=== PATIENT | male | born 1955 | race Caucasian/White ===

== ENCOUNTER 2020-10-17 15:45 | Inpatient (IN) | payer MEDICARE ==
[~2020-10-17 15:45] MED LIST: Glycopyrrolate 0.2 MG/ML 5 ML SYRINGE ONE; Iopamidol-370 76% 500 ML 1 ML ONE; Lidocaine 1% PF 5 ML VIAL ONE; Ondansetron PF 4 MG/2 ML Vial ONE; PROPOFOL 200 MG/20 ML VIAL ONE; Rocuronium Bromide 10 MG/ML (10ML VIAL) ONE; Succinylcholine 200 MG/10 ml SYRINGE FS ONE; ePHEDrine 50 MG/ML VIAL ONE
[2020-10-17] MEDS ORDERED: Calcium Chloride 1 GM/10 ML Abboject SYRINGE ONE (15:52)
[2020-10-17] MEDS ORDERED: Ondansetron PF 4 MG/2 ML Vial ONE (15:52)
[2020-10-17] MEDS ORDERED: Tranexamic Acid 1,000 MG/10 ML VIAL ONE (15:53)
[2020-10-17] MEDS ORDERED: Ampicillin 2 GM VIAL ONE (16:01)
[2020-10-17] MEDS ORDERED: Fentanyl 100 MCG/2 ML VIAL ONE ×4 (16:04→18:54)
[2020-10-17] MEDS ORDERED: Boostrix 0.5 ML (Tdap) VIAL ONE (16:06)
[2020-10-17 16:11] LABS: PTT 26.4 sec (22.9-36.1); Prothrombin Time 13.2 sec (12.0-14.7)
[2020-10-17 16:20] LABS: ALT (SGPT) 18 U/L (8-55); AST (SGOT) 20 U/L (5-34); Albumin 3.7 g/dL (3.4-4.8); Alkaline Phosphatase 61 U/L (40-110); Anion Gap 18 mmol/L (10-20); BUN (Urea Nitrogen) 27 mg/dL (8.4-25.7); Bilirubin, Total 0.4 mg/dL (0.2-1.2); Calc. Creatinine Clearance 0 mL/min (70-130); Calcium 8.7 mg/dL (7.8-10.44); Carbon Dioxide 18 mmol/L (23-31); Chloride 111 mmol/L (98-107); Estimated GFR-MDRD 31; Globulin 3.2 g/dL (2.4-3.5); Glucose 121 mg/dL (80-115); Protein, Total 6.9 g/dL (5.8-8.1); Sodium 142 mmol/L (136-145)
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
[2020-10-17 16:29] LABS: #Basophils 0.2 thou/uL (0.0-0.2); #Eosinphils 0.2 thou/uL (0.0-0.7); #Lymphocytes 1.5 thou/uL (1.20-3.40); #Monocytes 0.9 thou/uL (0.11-0.59); #Neutrophils 14.9 thou/uL (1.40-6.50); %Eosinophils 1.3 % (0.0-10.0); %Lymphocytes 8.7 % (21.0-51.0); %Monocytes 4.8 % (0.0-10.0); %Neutrophils 84.3 % (42.0-75.0); Hemoglobin 14.5 g/dL (14.0-18.0); Mean Corpuscular HGB CONC 33.4 g/dL (32.0-36.0); Mean Corpuscular Hemoglobin 33.5 pg (27.0-31.0); Mean Platelet Volume 8.2 fL (7.4-10.4); Platelet Count 188 thou/uL (130-400); RBC Distribution Width 16.4 % (11.5-14.5); Red Blood Cell (RBC) Count 4.32 mill/uL (4.70-6.10); White Blood Cell (WBC) Count 17.7 thou/uL (4.8-10.8)
[2020-10-17] MEDS ORDERED: Protamine Sulfate 50 MG/5 ML VIAL ONE (17:01)
[2020-10-17] MEDS ORDERED: Heparin 5,000 UNITS/ML VIAL ONE (17:01)
[2020-10-17] MEDS ORDERED: Bupivacaine 0.25% HCL 30 ML VIAL ONE (17:06)
[2020-10-17] MEDS ORDERED: Midazolam HCl 2 mg/2 ml Vial ONE (17:12)
[2020-10-17] MEDS ORDERED: HYDROmorphone 10 mg/100 ml CADD IVPB PRN (17:28)
[2020-10-17] MEDS ORDERED: diphenhydrAMINE 50 MG/ML VIAL IM PRN (17:28)
[2020-10-17] MEDS ORDERED: Promethazine HCl 25 MG/ML VIAL IM PRN (17:28)
[2020-10-17] MEDS ORDERED: Naloxone HCl 0.4 mg/ml Vial IV PRN (17:28)
[2020-10-17] MEDS ORDERED: Ondansetron PF 4 MG/2 ML Vial IVP PRN ×2 (17:28→17:29)
[2020-10-17] MEDS ORDERED: diphenhydrAMINE 25 MG CAP PO PRN (17:28)
[2020-10-17] MEDS ORDERED: diphenhydrAMINE 50 MG/ML VIAL IVP PRN (17:28)
[2020-10-17] MEDS ORDERED: Dextrose 5% in Water 1,000 ML IV PRN (17:29)
[2020-10-17] MEDS ORDERED: Dextrose 50% Abboject 50 ML SYRINGE SLOW IVP PRN (17:29)
[2020-10-17] MEDS ORDERED: HumaLOG 300 UNITS/3 ML VIAL SC PRN (17:29)
[2020-10-17] MEDS ORDERED: Communication Order-Pharmacy FS SCH (17:30)
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
--- NOTE | 2020-10-17 18:49 | RAD ---
RIGHT FEMUR: 10/17/20 A single portable image obtained. INDICATIONS: Assess for foreign body. FINDINGS/IMPRESSION: There is overlying artifact. Overlying foreign bodies seen proximally which may reside within the reilly ts pocket and may be external. There is a faint soft tissue density distally which cannot be further assessed but could represent so ft tissue foreign body. Clinical correlation as necessary. POS: AGW
[2020-10-17] MEDS: Sodium Chloride 0.9% 1,000 ML IV SCH ×2 (18:51→22:45)
[2020-10-17 19:26] LABS: Lactic Acid 1.8 mmol/L (0.5-2.2)
[2020-10-17] MEDS ORDERED: Gabapentin 300 MG CAP ONE (22:01)
[2020-10-17] MEDS: Gabapentin 300 MG CAP PO SCH (22:44)
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
[2020-10-18] MEDS: Mometasone 200 MCG/Formoterol 5 MCG 120 PUFF INHALER INH SCH ×4 (00:01→18:54)
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
[2020-10-18 01:04] LABS: SARS-CoV-2 NAA Rapid Test Not Detected (NotDetected)
[2020-10-18 01:25] VITALS: BMI 25.3
[2020-10-18 03:55] LABS: #Basophils 0.1 thou/uL (0.0-0.2); #Eosinphils 0.2 thou/uL (0.0-0.7); #Lymphocytes 1.4 thou/uL (1.20-3.40); #Monocytes 0.7 thou/uL (0.11-0.59); #Neutrophils 12.9 thou/uL (1.40-6.50); %Basophils 0.8 % (0.0-1.0); %Monocytes 4.8 % (0.0-10.0); %Neutrophils 84.5 % (42.0-75.0); Hemoglobin 13.3 g/dL (14.0-18.0); Mean Corpuscular HGB CONC 32.3 g/dL (32.0-36.0); Mean Corpuscular Hemoglobin 32.4 pg (27.0-31.0); Mean Platelet Volume 8.3 fL (7.4-10.4); Platelet Count 184 thou/uL (130-400); RBC Distribution Width 16.4 % (11.5-14.5); White Blood Cell (WBC) Count 15.3 thou/uL (4.8-10.8)
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
[2020-10-18 04:26] LABS: Anion Gap 13 mmol/L (10-20); BUN (Urea Nitrogen) 23 mg/dL (8.4-25.7); Calc. Creatinine Clearance 66 mL/min (70-130); Calcium 8.2 mg/dL (7.8-10.44); Carbon Dioxide 21 mmol/L (23-31); Chloride 112 mmol/L (98-107); Estimated GFR-MDRD 54; Glucose 99 mg/dL (80-115); Magnesium 2.1 mg/dL (1.6-2.6); Potassium 4.8 mmol/L (3.5-5.1); Sodium 141 mmol/L (136-145)
[2020-10-18 05:13] LABS: CK (CPK) 130 U/L (30-200); Phosphorus 4.8 mg/dL (2.3-4.7)
[2020-10-18] MEDS: Ipratropium Bromide 2.5 ml Neb NEB SCH ×3 (06:32→18:49)
[2020-10-18] MEDS ORDERED: Bupropion 150 MG XL TAB PO SCH (09:00)
[2020-10-18] MEDS ORDERED: Nebivolol HCl 5 MG TAB PO SCH ×2 (09:00→21:00)
[2020-10-18] MEDS ORDERED: Famotidine 20 MG TAB PO SCH (09:00)
[2020-10-18] MEDS ORDERED: oxyCODONE 5 MG TAB PO PRN (09:29)
[2020-10-18] MEDS: Gabapentin 300 MG CAP PO SCH ×3 (09:40→12:05)
[2020-10-18] MEDS: Aspirin 81 mg Enteric Coated Tablet PO SCH (09:40)
[2020-10-18] MEDS: Nebivolol HCl 5 MG TAB PO SCH (09:40)
[2020-10-18] MEDS: Bupropion 150 MG XL TAB PO SCH (09:41)
[2020-10-18] MEDS: Loratadine 10 MG TAB PO SCH (12:05)
[2020-10-18 13:41] LABS: Amphetamine Not Detected (NotDetected); Barbiturates Screen Not Detected (NotDetected); Benzodiazepine Screen Not Detected (NotDetected); Cocaine Metabolite Screen Not Detected (NotDetected); Medtox Control Line Valid? VALID (VALID); Medtox Reader # READER 1; Methadone Not Detected (NotDetected); Methamphetamine Not Detected (NotDetected); Opiate Screen Detected (NotDetected); Oxycodone Screen Detected (NotDetected); Phencyclidine (PCP) Not Detected (NotDetected); THC/Cannabinoid Screen Not Detected (NotDetected); Tricyclic Screen Not Detected (NotDetected)
[2020-10-18] MEDS ORDERED: Tamsulosin HCl 0.4 MG CAP PO SCH (14:01)
[2020-10-18] MEDS: oxyCODONE ER 10 MG TAB PO SCH (14:22)
[2020-10-18] MEDS: Sodium Chloride 0.9% 1,000 ML IV SCH (14:23)
[2020-10-18] MEDS: Lisinopril 20 MG TAB PO SCH (20:32)
[2020-10-18] MEDS ORDERED: BOSUTINIB 100 MG PO SCH (21:00)
[2020-10-18] MEDS ORDERED: Gabapentin 300 MG CAP PO SCH (21:00)
[2020-10-19] MEDS: Ipratropium Bromide 2.5 ml Neb NEB SCH ×2 (00:15→07:48)
[2020-10-19] MEDS: Sodium Chloride 0.9% 1,000 ML IV SCH (02:19)
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
[2020-10-19] MEDS ORDERED: oxyCODONE ER 10 MG TAB PO SCH (05:00)
[2020-10-19 05:17] LABS: #Basophils 0.1 thou/uL (0.0-0.2); #Eosinphils 0.1 thou/uL (0.0-0.7); #Lymphocytes 1.4 thou/uL (1.20-3.40); #Monocytes 0.7 thou/uL (0.11-0.59); #Neutrophils 8.2 thou/uL (1.40-6.50); %Basophils 1.3 % (0.0-1.0); %Eosinophils 1.3 % (0.0-10.0); %Monocytes 6.4 % (0.0-10.0); Hemoglobin 11.8 g/dL (14.0-18.0); Mean Corpuscular HGB CONC 30.8 g/dL (32.0-36.0); Mean Platelet Volume 8.6 fL (7.4-10.4); Platelet Count 163 thou/uL (130-400); RBC Distribution Width 16.2 % (11.5-14.5); Red Blood Cell (RBC) Count 3.82 mill/uL (4.70-6.10); White Blood Cell (WBC) Count 10.6 thou/uL (4.8-10.8)
[2020-10-19] MEDS: Gabapentin 300 MG CAP PO SCH ×2 (05:22→14:11)
[2020-10-19 05:55] LABS: Anion Gap 11 mmol/L (10-20); BUN (Urea Nitrogen) 16 mg/dL (8.4-25.7); Calc. Creatinine Clearance 94 mL/min (70-130); Calcium 8.4 mg/dL (7.8-10.44); Carbon Dioxide 26 mmol/L (23-31); Chloride 105 mmol/L (98-107); Estimated GFR-MDRD 80; Glucose 102 mg/dL (80-115); Magnesium 1.7 mg/dL (1.6-2.6); Phosphorus 2.7 mg/dL (2.3-4.7); Potassium 4.2 mmol/L (3.5-5.1); Sodium 138 mmol/L (136-145)
[2020-10-19] MEDS: Mometasone 200 MCG/Formoterol 5 MCG 120 PUFF INHALER INH SCH (07:47)
[2020-10-19] MEDS ORDERED: Polyethylene Glycol 3350 17 GM Packet PO SCH (09:00)
[2020-10-19] MEDS: Lisinopril 20 MG TAB PO SCH (09:00)
[2020-10-19] MEDS ORDERED: Tamsulosin HCl 0.4 MG CAP PO SCH (09:00)
[2020-10-19] MEDS: Aspirin 81 mg Enteric Coated Tablet PO SCH (09:00)
[2020-10-19] MEDS ORDERED: Senokot S 8.6-50 MG TAB PO SCH (09:00)
[2020-10-19] MEDS ORDERED: Dutasteride 0.5 MG CAP PO SCH (09:00)
[2020-10-19] MEDS: Loratadine 10 MG TAB PO SCH (09:00)
[2020-10-19] MEDS: Nebivolol HCl 5 MG TAB PO SCH (09:01)
[2020-10-19] MEDS: Bupropion 150 MG XL TAB PO SCH (09:01)
[2020-10-19 11:51] VITALS: BP 141/64; TEMP 98.6
[2020-10-19] MEDS: oxyCODONE ER 10 MG TAB PO SCH (14:11)
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
== END 2020-10-19 14:45 | disposition home or self-care (01) | DRG 907 ==
LOC: ERS 15:45 → SDC 17:31 → CCU 17:45 → SURG A 10-18 10:45
PROVIDERS: ADMIT Surgery; ATTEND Surgery
PROC: 04QK0ZZ Repair Right Femoral Artery, Open Approach (ICD-10-PCS; principal; 2020-10-17)
DX: S75.091A Other specified injury of femoral artery, right leg, initial encounter (principal); R57.8 Other shock; D62 Acute posthemorrhagic anemia; E87.2 Acidosis; W26.0XXA Contact with knife, initial encounter; J44.9 Chronic obstructive pulmonary disease, unspecified; I10 Essential (primary) hypertension; F17.200 Nicotine dependence, unspecified, uncomplicated; G89.29 Other chronic pain; M54.9 Dorsalgia, unspecified; F32.9 Major depressive disorder, single episode, unspecified; F17.210 Nicotine dependence, cigarettes, uncomplicated; E11.40 Type 2 diabetes mellitus with diabetic neuropathy, unspecified; Z79.899 Other long term (current) drug therapy; Z79.891 Long term (current) use of opiate analgesic; R33.9 Retention of urine, unspecified; Z85.6 Personal history of leukemia; Z20.828 Contact with and (suspected) exposure to other viral communicable diseases
CPT/HCPCS: 36415; 36416; 36430; 71045; 75635; 80048; 80053; 80306; 80307; 82550; 83605; 83735; 84100; 85025; 85610; 85730; 86850; 86900; 86901; 90471; 90715; 93005; 94640; 94660; 94760; 96365; 96375; G0390; J0290; J0690; J1644; J2250; J2405; J2704; J2720; J3010; J3490; J7620; P9016; P9048; Q9967; S0020; U0002